=== PATIENT | female | born 1995 | race African-American/Black ===

== ENCOUNTER 2018-08-14 10:55 | Emergency (ER) | payer SELFPAY ==
[~2018-08-14] VITALS: Ht 162.6 cm; Wt 54.0 kg
[2018-08-14 11:09] VITALS: BP 107/67
--- NOTE | 2018-08-14 11:10 | Emergency Room Report ---
History of Present Illness General Chief Complaint: Abdominal Pain Source: Patient, EMS Present Illness HPI Patient present with complaints of left upper abdominal pain epigastric pain nausea and vomiting patient reports that last night she went to bed without any obvious symptoms this morning she awoke to the pain which followed with vomiting denies any lower abdominal pain denies any diarrhea denies any chest pain or shortness of breath Does not recall eating anything unusual Denies any neck pain or photophobia denies any recent travel Allergies: Coded Allergies: No Known Allergies (Unverified , 08/14/18) Patient History Past Medical History: see triage record Pertinent Family History: none Now: No Reviewed Nursing Documentation: PMH: Agreed; PSxH: Agreed Nursing Documentation-PMH Past Medical History: No Stated History Review of Systems All Other Systems: negative except mentioned in HPI Physical Exam Vital Signs Date Time Temp Pulse Resp B/P (MAP) Pulse Ox O2 Delivery O2 Flow Rate FiO2 08/14/18 10:49 97.9 72 18 115/80 98 Room Air 97.9 Sp02 EP Interpretation: reviewed, normal General Appearance: mild distress - Patient laying on her stomach in acute pain Head: normocephalic, atraumatic Eyes: bilateral eye PERRL, bilateral eye EOMI ENT: hearing grossly normal, normal pharynx, TMs + canals normal, uvula midline Neck: full range of motion, supple, no meningismus, no bony tend Respiratory: lungs clear, normal breath sounds, no rhonchi, no respiratory distress, no retraction, no accessory muscle use Cardiovascular #1: normal peripheral pulses, regular rate, rhythm, no edema, no gallop, no JVD, no murmur Gastrointestinal: normal bowel sounds, non tender - On palpation however subjectively points to The epigastric and left upper quadrant, soft, no mass, no organomegaly, non-distended, no guarding, no hernia, no pulsatile mass, no rebound Genitourinary: no CVA tenderness Musculoskeletal: normal inspection Neurologic: oriented x3, responsive, 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, motor strength/ tone normal, sensory intact Psychiatric: mood/affect normal Skin: normal color, no rash, warm/dry, palpation normal Lymphatic: normal inspection, no adenopathy Medical Decision Making Diagnostic Impression: Primary Impression: PID (acute pelvic inflammatory disease) Additional Impression: Abdominal pain ER Course With the patient's history and examination, multiple differentials considered, including but not limited to , ectopic , ovarian torsion, gastritis, cholecystitis, pancreatitis, appendicitis Patient's white blood cell count is elevated Prompting CT imaging There is evidence of PID with some free fluid in the CAT scan Patient's also showing sign of ovarian cyst On repeat examination now the patient has significantly improved I'm unable to obtain a much improved abdominal exam which remains soft Patient reports pain in the left upper quadrant and also the right upper quadrant On further discussion she does now report some vaginal discharge Denies any pelvic pain She reports that very initially about 2-3 days ago she had some discomfort in the pelvic area which improved however the pain moved to the upper quadrant Possible peritoneal irritation from the PID Otherwise after prolonged observation hydration and IV antibiotics Patient has improved significantly and will have initial outpatient attempt of PID treatment Labs Test 08/14/18 11:02 08/14/18 11:15 Urine Color Yellow Urine Appearance Slightly cloudy Urine pH 9 (4.5-8.0) Urine Specific [place] 1.010 (1.005-1.035) Urine Protein 2+ (NEGATIVE) Urine Glucose (UA) Negative (NEGATIVE) Urine Ketones 3+ (NEGATIVE) Urine Blood 2+ (NEGATIVE) Urine Nitrite Negative (NEGATIVE) Urine Bilirubin Negative (NEGATIVE) Urine Urobilinogen 1 MG/DL (0.0-1.0) Urine Leukocyte Esterase 3+ (NEGATIVE) Urine RBC 2-4 /HPF (0 - 2) Urine WBC 10-15 /HPF (0 - 2) Urine Squamous Epithelial Cells Few /LPF (NONE/OCC) Urine Bacteria Few /HPF (NONE) Urine HCG, Qualitative Negative (NEGATIVE) Urine Opiates Screen Negative (NEGATIVE) Urine Barbiturates Screen Negative (NEGATIVE) Phencyclidine (PCP) Screen Negative (NEGATIVE) Urine Amphetamines Screen Negative (NEGATIVE) Urine Benzodiazepines Screen Negative (NEGATIVE) Urine Cocaine Screen Negative (NEGATIVE) Urine Marijuana (THC) Screen Positive (NEGATIVE) White Blood Count 15.6 K/UL (4.8-10.8) Red Blood Count 5.47 M/UL (4.20-5.40) Hemoglobin 15.5 G/DL (12.0-16.0) Hematocrit 46.8 % (37.0-47.0) Mean Corpuscular Volume 86 FL (80-99) Mean Corpuscular Hemoglobin 28.4 PG (27.0-31.0) Mean Corpuscular Hemoglobin Concent 33.2 G/DL (32.0-36.0) Red Cell Distribution Width 10.4 % (11.6-14.8) Platelet Count 522 K/UL (150-450) Mean Platelet Volume 5.3 FL (6.5-10.1) Neutrophils (%) (Auto) % (45.0-75.0) Lymphocytes (%) (Auto) % (20.0-45.0) Monocytes (%) (Auto) % (1.0-10.0) Eosinophils (%) (Auto) % (0.0-3.0) Basophils (%) (Auto) % (0.0-2.0) Differential Total Cells Counted 100 Neutrophils % (Manual) 93 % (45-75) Lymphocytes % (Manual) 7 % (20-45) Monocytes % (Manual) 0 % (1-10) Eosinophils % (Manual) 0 % (0-3) Basophils % (Manual) 0 % (0-2) Band Neutrophils 0 % (0-8) Platelet Estimate Increased Platelet Morphology Normal Red Blood Cell Morphology Normal Sodium Level 138 MMOL/L (136-145) Potassium Level 3.6 MMOL/L (3.5-5.1) Chloride Level 101 MMOL/L (98-107) Carbon Dioxide Level 26 MMOL/L (21-32) Anion Gap 11 mmol/L (5-15) Blood Urea Nitrogen 9 mg/dL (7-18) Creatinine 0.8 MG/DL (0.55-1.30) Estimat Glomerular Filtration Rate > 60 mL/min (>60) Glucose Level 94 MG/DL (74-106) Calcium Level 9.4 MG/DL (8.5-10.1) Total Bilirubin 0.5 MG/DL (0.2-1.0) Aspartate Amino Transf (AST/SGOT) 17 U/L (15-37) Alanine Aminotransferase (ALT/SGPT) 11 U/L (12-78) Alkaline Phosphatase 74 U/L (46-116) Total Protein 8.1 G/DL (6.4-8.2) Albumin 3.3 G/DL (3.4-5.0) Globulin 4.8 g/dL Albumin/Globulin Ratio 0.7 (1.0-2.7) Lipase 76 U/L (73-393) Human Chorionic Gonadotropin, Quant < 1 mIU/mL (1-6) CT/MRI/US Diagnostic Results CT/MRI/US Diagnostic Results : Impression CT abdomenpelvisIMPRESSION: Suspected bilateral hydrosalpinx/pyosalpinx with enhancing free fluid within the cul-de-sac. Findings suspicious for pelvic inflammatory disease and infection. 3 cm right ovarian cyst noted. Correlate clinically. Last Vital Signs Date Time Temp Pulse Resp B/P (MAP) Pulse Ox O2 Delivery O2 Flow Rate FiO2 08/14/18 10:49 97.9 72 18 115/80 98 Room Air 97.9 Status: improved Disposition: HOME, SELF-CARE Condition: Improved Scripts Acetaminophen With Codeine (T#3) (TYLENOL #3 TAB*) Y Tab 1 TAB ORAL Q8H PRN for For Pain, #10 TAB Prov: Varun Cross DO 08/14/18 Ibuprofen* (MOTRIN*) 600 Mg Tablet 600 MG ORAL Q8H PRN for For Pain, #20 TAB 0 Refills Prov: Varun Cross DO 08/14/18 Metronidazole* (FLAGYL*) 500 Mg Tablet 500 MG ORAL THREE TIMES A DAY, #30 TAB Prov: Varun Cross DO 08/14/18 Additional Instructions: Patient is provided with the discharge instructions notified to follow up with primary doctor in the next 2-3 days otherwise return to the er with any worsening symptoms. Please note that this report is being documented using [employer] technology. This can lead to erroneous entry secondary to incorrect interpretation by the dictating instrument. Varun Cross DO Aug 14, 2018 11:10
[2018-08-14] MEDS ORDERED: Morphine Sulfate 4mg/ml Inj (IV USE ONLY) IVP ONE (11:15)
[2018-08-14] MEDS ORDERED: LORazepam Inj 2mg/ml 1ml IV ONE (11:15)
[2018-08-14] MEDS ORDERED: Metoclopramide 10mg/2ml Inj IVP ONE (11:15)
[2018-08-14 11:33] LABS: HEMATOCRIT 46.8 % (37.0-47.0); HEMOGLOBIN 15.5 G/DL (12.0-16.0); MEAN CORPUSCULAR VOLUME 86 FL (80-99); PLATELET COUNT 522 K/UL (150-450); RED BLOOD COUNT 5.47 M/UL (4.20-5.40); RED CELL DISTRIBUTION WIDTH 10.4 % (11.6-14.8); WHITE BLOOD COUNT 15.6 K/UL (4.8-10.8)
[2018-08-14 11:41] LABS: APPEARANCE,URINE SLIGHTLY CLOUDY; BILIRUBIN, URINE NEGATIVE (NEGATIVE); GLUCOSE, URINE (UA) NEGATIVE (NEGATIVE); KETONES,URINE 3+ (NEGATIVE); LEUKOCYTE ESTERASE ,URINE 3+ (NEGATIVE); NITRITE,URINE NEGATIVE (NEGATIVE); PH,URINE 9 (4.5-8.0); PROTEIN,URINE 2+ (NEGATIVE); UROBILINOGEN,URINE 1 MG/DL (0.0-1.0)
[2018-08-14 11:43] LABS: ANION GAP 11 mmol/L (5-15); BLOOD UREA NITROGEN 9 mg/dL (7-18); CALCIUM 9.4 MG/DL (8.5-10.1); CARBON DIOXIDE 26 MMOL/L (21-32); CHLORIDE 101 MMOL/L (98-107); CREATININE 0.8 MG/DL (0.55-1.30); POTASSIUM 3.6 MMOL/L (3.5-5.1); SODIUM 138 MMOL/L (136-145)
[2018-08-14 11:43] LABS: COLOR,URINE YELLOW
[2018-08-14 11:47] LABS: ALANINE AMINOTRANSFERASE 11 U/L (12-78); ALBUMIN 3.3 G/DL (3.4-5.0); ALBUMIN/GLOBULIN RATIO 0.7 (1.0-2.7); ALKALINE PHOSPHATASE 74 U/L (46-116); ASPARTATE AMINO TRANSFERASE 17 U/L (15-37); BILIRUBIN,TOTAL 0.5 MG/DL (0.2-1.0)
[2018-08-14] MEDS ORDERED: Isovue-300 100ml vial INJ PRN (12:00)
--- NOTE | 2018-08-14 12:59 | Diagnostic Imaging Report ---
Indication: Abdominal pain Technique: Continuous helical transaxial imaging of the abdomen and pelvis was obtained from the lung bases to the pubic symphysis during intravenous contrast administration. Coronal 2-D reformats were also obtained. Study obtained in a Siemens sensation [address] Automatic Exposure Control was utilized. Total Dose length Product (DLP): 467.[address] Dose Index Volume (CTDIvol): 9.2 mGy Comparison: None Findings: Lung bases are clear. The liver and spleen appear unremarkable. Gallbladder is unremarkable. Pancreas and both adrenal glands, both kidneys appear normal. There is no hydronephrosis. The appendix is not definitely seen. Within the pelvis, there are bilateral, tubular hypodense structures with rim enhancement probably representing dilated fallopian tubes and suspicious for bilateral hydrosalpinx or pyosalpinx. There is a small amount of fluid in the cul-de-sac with some rim enhancement as well. There is a right ovarian cyst measuring 3 cm. The uterus is noted. There is some generalized soft tissue stranding within the pelvis are noted. IMPRESSION: Suspected bilateral hydrosalpinx/pyosalpinx with enhancing free fluid within the cul-de-sac. Findings suspicious for pelvic inflammatory disease and infection. 3 cm right ovarian cyst noted. Correlate clinically. The CT scanner at [facility] is accredited by the [employer] and the scans are performed using dose optimization techniques as appropriate to a performed exam including Automatic Exposure control.
[2018-08-14 13:04] VITALS: BP 109/65
[2018-08-14] MEDS ORDERED: Azithromycin 250mg tab ORAL ONE (13:15)
[2018-08-14] MEDS ORDERED: cefTRIAXone 1 GM in NS 55 ML IVPB ONE (13:15)
[2018-08-14] MEDS ORDERED: IBUPROFEN600 MG ORAL (13:41)
[2018-08-14] MEDS ORDERED: ACETAMINOPHEN-1 EAC1 ORAL (13:41)
[2018-08-14] MEDS ORDERED: METRONIDAZOLE500 MG ORAL (13:41)
[2018-08-14 14:13] VITALS: BP 124/76
== END 2018-08-14 14:14 | disposition home or self-care (01) ==
LOC: EDBD 10:55 → EMR 11:16
DX: N73.9 Female pelvic inflammatory disease, unspecified (principal); R10.9 Unspecified abdominal pain
CPT/HCPCS: 36415; 74177; 80053; 80307; 81003; 81025; 83690; 84702; 85007; 85025; 87086; 96361; 96365; 96375; 99284; J0696; J2270; J2765; Q9967